=== PATIENT | male | born 1990 | race Hispanic/Latino ===

== ENCOUNTER 2017-11-13 12:10 | Emergency (ER) | payer SELFPAY | END 2017-11-13 12:40 | disposition home or self-care (01) | LOC: EDH 12:10 | DX: M25.561 Pain in right knee (principal) ==

== ENCOUNTER 2020-04-11 04:20 | Emergency (ER) | payer OTHER | END 2020-04-11 05:03 | disposition home or self-care (01) | LOC: EDH 04:20 | DX: F19.10 Other psychoactive substance abuse, uncomplicated (principal) ==